=== PATIENT | female | born 1945 | race Caucasian/White ===

== ENCOUNTER 2018-06-18 00:31 | Emergency (ER) | payer MEDICAID ==
[~2018-06-18] VITALS: Ht 144.8 cm; Wt 65.8 kg
[2018-06-18 01:08] VITALS: BP_SYST 144
[2018-06-18] MEDS ORDERED: LOSA50TA3 PO (01:14)
[2018-06-18] MEDS ORDERED: HUM10VIA SQ (01:15)
[2018-06-18] MEDS ORDERED: NACL 0.9% 1,000 ML IV ONE (01:15)
[2018-06-18] MEDS ORDERED: LEVOTHYROXINE PO (01:16)
--- NOTE | 2018-06-18 01:35 | NUR ---
Patient to ER bed 6 to gown for evaluation. Side rails up. Report given from CONCHITA Browning.
--- NOTE | 2018-06-18 01:40 | NUR ---
ER at bedside examining patient.
--- NOTE | 2018-06-18 01:45 | NUR ---
Patient came in complaining of overall weakness. Pt's daughter says that she noticed her Mom had soem chills earlier this evening around 1600 ands he gave some ibuprofen but no relief. Pt's daughter said that around 10 pm her mother was starting to feel shaky and unsteady so they checked her blood sugar which was 225. No nausea, vomitting or diarrhea noted. Pt's daughter said that she was confused earlier tonight but is a lot better now since she got into the ED. No other complaints/injuries noted. Will continue to monitor.
--- NOTE | 2018-06-18 01:55 | NUR ---
Blood cultures obtained and sent to lab.
--- NOTE | 2018-06-18 02:30 | NUR ---
Patient resting comfortably in bed with both daughters at bedside. Fluids running, pt tolerating well. Will cont. to monitor.
[2018-06-18 02:31] LABS: ANION GAP 7 (5-15); CHLORIDE 96 mmol/L (98-107); CREATININE 1.06 mg/dL (0.55-1.30); GLUCOSE 134 mg/dL (70-99); POTASSIUM 3.4 mmol/L (3.5-5.1); SODIUM SERUM 133 mmol/L (136-145); UREA NITROGEN, BLOOD 20 mg/dL (8-21)
[2018-06-18 02:33] LABS: PROTHROMBIN TIME 10.4 SECS (9.5-12.5)
[2018-06-18 02:36] LABS: ALANINE AMINOTRANSFERASE 56 U/L (12-78); ALBUMIN 3.5 g/dL (3.4-4.8); ASPARTATE AMINOTRANSFERASE 53 U/L (10-37); BASOPHILS # (AUTO) 0.1 K/uL (0.0-0.2); BASOPHILS % (AUTO) 0.7 % (0.0-2.0); EOSINOPHILS % (AUTO) 0.2 % (0.0-4.0); HEMATOCRIT 43.1 % (36-48); HEMOGLOBIN 14.6 g/dL (12.0-16.0); LYMPHOCYTES # (AUTO) 0.5 K/uL (1.0-5.5); LYMPHOCYTES % (AUTO) 5.8 % (20.5-51.5); MEAN CORPUSCULAR HEMOGLOBIN 34 pg (27-31); MEAN CORPUSCULAR HGB CONC 34 % (32-36); MEAN CORPUSCULAR VOLUME 99 fL (79.0-98.0); MONOCYTES # (AUTO) 0.3 K/uL (0.0-1.0); NEUTROPHILS # (AUTO) 7.5 K/uL (1.8-7.7); NEUTROPHILS % (AUTO) 90.3 % (40.0-70.0); PLATELET COUNT (AUTO) 174 K/uL (130-430); RED BLOOD CELL COUNT(AUTO) 4.37 MIL/uL (4.2-6.2); RED CELL DISTRIBUTION WIDTH 12.2 % (9.0-15.0); TOTAL BILIRUBIN 0.7 mg/dL (0.0-1.0); WHITE BLOOD COUNT (AUTO) 8.4 K/uL (4.8-10.8)
[2018-06-18 02:37] LABS: BILIRUBIN,URINE NEGATIVE (NEGATIVE); BLOOD, URINE 1+ (NEGATIVE); CLARITY/URINE HAZY (CLEAR); COLOR,URINE YELLOW (YELLOW); GLUCOSE,URINE 1+ (NEGATIVE); KETONES,URINE NEGATIVE (NEGATIVE); LEUKOCYTE ESTERASE ,URINE TRACE (NEGATIVE); NITRITE, URINE NEGATIVE (NEGATIVE); PH,URINE 6.5 (5.0-8.0); PROTEIN URINE 2+ (NEGATIVE); UROBILINOGEN,URINE 0.2 (0.2-1.0)
[2018-06-18 02:48] LABS: MUCUS,URINE 1+ /LPF (None Seen)
[2018-06-18 02:49] LABS: BACTERIA,URINE MANY /HPF (None Seen)
[2018-06-18] MEDS ORDERED: LEVOFLOXACIN 500 MG/D5W 100 ML IV ONE (03:00)
[2018-06-18] MEDS ORDERED: NACL 0.9% 2,000 ML IV ONE (03:00)
--- NOTE | 2018-06-18 03:30 | NUR ---
Patient resting comfortably in bed. Fluids running. No signs of distress. Will cont. to monitor.
--- NOTE | 2018-06-18 04:13 | NUR ---
Pt got up to void in bedside commode with some assistance. Denies any dizziness. Tolerated well.
[2018-06-18] MEDS ORDERED: FUROSEMIDE 40 MG/4 ML VIAL IVP ONE (06:15)
--- NOTE | 2018-06-18 06:15 | NUR ---
Pt's blood pressure is 157/108. MD Dr. Daniels made aware. Pt is started on lasix IVP per MD order. Pt tolerating well. Will continue to monitor.
--- NOTE | 2018-06-18 06:35 | NUR ---
Pt states she "feels better" and "can breathe". Blood pressure is 148/52. MD Dr. Daniels made aware.
[2018-06-18 06:47] VITALS: BP_SYST 148
--- NOTE | 2018-06-18 06:47 | NUR ---
Patient given written and verbal discharge instructions and verbalizes understanding. ER MD Dr. Daniels discussed with patient the results and treatment provided. Patient in stable condition. ID arm band removed. IV catheter removed intact and dressing applied, no active bleeding. Rx of cipro given. Patient educated on pain management and to follow up with PMD within 2-3 days. Pain Scale 0/10. Opportunity for questions provided and answered. Medication side effect fact sheet provided.
== END 2018-06-18 06:47 | disposition home or self-care (01) ==
LOC: SED 00:31
DX: N39.0 Urinary tract infection, site not specified (principal); E11.9 Type 2 diabetes mellitus without complications; I10 Essential (primary) hypertension; Z79.899 Other long term (current) drug therapy
CPT/HCPCS: 36415; 71045; 80053; 81000; 82962; 83605; 84484; 85025; 85610; 85730; 87040; 87086; 87186; 93005; 96365; 96375; 99285; J1940; J1956; J7030

== ENCOUNTER 2018-10-30 16:56 | Emergency (ER) | payer MEDICAID ==
[~2018-10-30] VITALS: Ht 157.5 cm; Wt 63.0 kg
[~2018-10-30 16:56] MED LIST: HUM10VIA SQ; LEVOTHYROXINE PO; LOSA50TA3 PO
[2018-10-30] MEDS ORDERED: ONDANSETRON HCL 4 MG/2 ML VIAL IVP ONE (17:00)
[2018-10-30] MEDS ORDERED: NACL 0.9% 1,000 ML IV ONE (17:00)
[2018-10-30] MEDS ORDERED: ASPIRIN 81 MG TAB.CHEW PO ONE (17:00)
[2018-10-30 17:21] VITALS: BP_SYST 163
--- NOTE | 2018-10-30 17:31 | NUR ---
Patient to ER bed 2 to gown for evaluation. Side rails up. Report given to Tatianna ARANGO.
[2018-10-30 17:37] LABS: HEMOGLOBIN 14.3 g/dL (12.0-16.0); MEAN CORPUSCULAR HEMOGLOBIN 35 pg (27-31); MEAN CORPUSCULAR HGB CONC 35 % (32-36); MEAN CORPUSCULAR VOLUME 99 fL (79.0-98.0); PLATELET COUNT (AUTO) 184 K/uL (130-430); RED BLOOD CELL COUNT(AUTO) 4.14 MIL/uL (4.2-6.2); RED CELL DISTRIBUTION WIDTH 12.7 % (9.0-15.0); WHITE BLOOD COUNT (AUTO) 4.7 K/uL (4.8-10.8)
[2018-10-30 17:38] LABS: EOSINOPHILS # (AUTO) 0.1 K/uL (0.0-0.4); EOSINOPHILS % (AUTO) 1.3 % (0.0-4.0); LYMPHOCYTES # (AUTO) 1.5 K/uL (1.0-5.5); LYMPHOCYTES % (AUTO) 32.1 % (20.5-51.5); MONOCYTES # (AUTO) 0.5 K/uL (0.0-1.0); MONOCYTES % (AUTO) 9.6 % (1.7-9.3); NEUTROPHILS # (AUTO) 2.6 K/uL (1.8-7.7)
[2018-10-30 17:41] LABS: PROTHROMBIN TIME 10.2 SECS (9.5-12.5)
[2018-10-30 17:44] LABS: ANION GAP 5 (5-15); CALCIUM 8.9 mg/dL (8.4-11.0); CHLORIDE 96 mmol/L (98-107); CREATININE 1.09 mg/dL (0.55-1.30); GLUCOSE 367 mg/dL (70-99); POTASSIUM 4.2 mmol/L (3.5-5.1); SODIUM SERUM 132 mmol/L (136-145); UREA NITROGEN, BLOOD 18 mg/dL (8-21)
[2018-10-30 17:50] LABS: ALANINE AMINOTRANSFERASE 48 U/L (12-78); ALBUMIN 3.3 g/dL (3.4-4.8); AMYLASE 56 U/L (0-100); ASPARTATE AMINOTRANSFERASE 44 U/L (10-37); LIPASE 213 U/L (73-393); TOTAL BILIRUBIN 0.4 mg/dL (0.0-1.0)
--- NOTE | 2018-10-30 17:55 | NUR ---
ER Dr. Cadet at bedside examining patient.
--- NOTE | 2018-10-30 17:56 | NUR ---
Patient presented to the ER c/o fall yesterday at 0300. Patient states she fell at home hitting the back of her head with no KO. Pt A&Ox4, georgian speaking only, afebrile, respirations equal bilat.PAtient states pain to her back of head and sides of neck /
--- NOTE | 2018-10-30 18:15 | NUR ---
Pt to CT with Radiology staff
--- NOTE | 2018-10-30 18:25 | NUR ---
Pt back to ER bed [address]
--- NOTE | 2018-10-30 19:18 | NUR ---
Patient given written and verbal discharge instructions and verbalizes understanding. ER MD discussed with patient the results and treatment provided. Patient in stable condition. ID arm band removed. IV catheter removed intact and dressing applied, no active bleeding. Rx of Tylenol given. Patient educated on pain management and to follow up with PMD. Pain Scale2/10 tolerable for pt . Opportunity for questions provided and answered. Medication side effect fact sheet provided. Discharge in [place].
[2018-10-30 19:20] VITALS: BP_SYST 163
== END 2018-10-30 19:20 | disposition home or self-care (01) ==
LOC: SED 16:56
DX: S16.1XXA Strain of muscle, fascia and tendon at neck level, initial encounter (principal); S09.90XA Unspecified injury of head, initial encounter; I10 Essential (primary) hypertension; E11.9 Type 2 diabetes mellitus without complications; Z79.899 Other long term (current) drug therapy; W01.198A Fall on same level from slipping, tripping and stumbling with subsequent striking against other object, initial encounter; Y93.89 Activity, other specified; Y92.89 Other specified places as the place of occurrence of the external cause; Y99.8 Other external cause status
CPT/HCPCS: 36415; 70450; 71045; 72125; 80053; 82150; 82550; 83690; 83880; 84484; 85025; 85610; 85730; 93005; 96374; 99284; J2405; J7030

== ENCOUNTER 2019-07-26 06:29 | Emergency (ER) | payer MEDICAID ==
[~2019-07-26] VITALS: Ht 157.5 cm; Wt 63.0 kg
--- NOTE | 2019-07-26 06:44 | NUR ---
Patient to ER bed 06 to gown for evaluation. Side rails up.
[2019-07-26 06:50] VITALS: BP_SYST 149
--- NOTE | 2019-07-26 07:06 | NUR ---
ER at bedside examining patient.
[2019-07-26] MEDS ORDERED: NACL 0.9% 1,000 ML IV ONE (07:07)
--- NOTE | 2019-07-26 07:07 | NUR ---
report received from Angela ARANGO. PT arrives from home w/ c/o 03/19 left sided abd pain. Pt denies N/V. Pt report not having complete BM's.
--- NOTE | 2019-07-26 07:30 | NUR ---
# 20 gauge angiocath placed to LAC. Use of asceptic technique. Opsite placed over site. Blood return noted. Blood for lab drawn from site. Flushed with 10 cc of normal saline. No evidence of infiltration noted. Patient tolerated well.
[2019-07-26 07:32] LABS: BILIRUBIN,URINE NEGATIVE (NEGATIVE); BLOOD, URINE 2+ (NEGATIVE); CLARITY/URINE CLOUDY (CLEAR); COLOR,URINE YELLOW (YELLOW); GLUCOSE,URINE TRACE (NEGATIVE); KETONES,URINE TRACE (NEGATIVE); LEUKOCYTE ESTERASE ,URINE 3+ (NEGATIVE); NITRITE, URINE NEGATIVE (NEGATIVE); PROTEIN URINE 2+ (NEGATIVE); UROBILINOGEN,URINE 0.2 (0.2-1.0)
[2019-07-26 07:35] LABS: BACTERIA,URINE MODERATE /HPF (None Seen); WBC,URINE >100 /HPF (0-3)
--- NOTE | 2019-07-26 07:50 | NUR ---
Patient transported to radiology via gurney, accompanied by trade manager.
--- NOTE | 2019-07-26 08:17 | NUR ---
pt returned from Ct scan.
[2019-07-26 08:41] LABS: HEMATOCRIT 39.3 % (36-48); HEMOGLOBIN 13.6 g/dL (12.0-16.0); MEAN CORPUSCULAR HEMOGLOBIN 35 pg (27-31); MEAN CORPUSCULAR HGB CONC 35 % (32-36); MEAN CORPUSCULAR VOLUME 101 fL (79.0-98.0); PLATELET COUNT (AUTO) 130 K/uL (130-430); RED BLOOD CELL COUNT(AUTO) 3.89 MIL/uL (4.2-6.2); WHITE BLOOD COUNT (AUTO) 12.1 K/uL (4.8-10.8)
[2019-07-26 08:52] LABS: ANION GAP 12 (5-15); CALCIUM 7.9 mg/dL (8.4-11.0); CHLORIDE 98 mmol/L (98-107); CREATININE 1.36 mg/dL (0.55-1.30); GLUCOSE 219 mg/dL (70-99); POTASSIUM 3.2 mmol/L (3.5-5.1); SODIUM SERUM 137 mmol/L (136-145); UREA NITROGEN, BLOOD 15 mg/dL (8-21)
[2019-07-26 08:57] LABS: ALANINE AMINOTRANSFERASE 39 U/L (12-78); ALBUMIN 2.8 g/dL (3.4-4.8); ASPARTATE AMINOTRANSFERASE 36 U/L (10-37); LIPASE 50 U/L (73-393); TOTAL BILIRUBIN 1.4 mg/dL (0.0-1.0)
[2019-07-26] MEDS ORDERED: cefTRIAXone 1 GM IVPB PREMIX 50 ML IV ONE (09:00)
[2019-07-26 09:01] LABS: ATYPICAL LYMPHOCYTES % 0 % (0-0); BAND % (MANUAL) 15 % (0-6); BASOPHILS % (MANUAL) 0 % (0-2); EOSINOPHILS % (MANUAL) 0 % (0-7); LYMPHOCYTES % (MANUAL) 9 % (20-46); MONOCYTES % (MANUAL) 11 % (0-11)
--- NOTE | 2019-07-26 09:25 | NUR ---
Rocephin currently infusing per MD order.
[2019-07-26 10:02] VITALS: BP_SYST 108
--- NOTE | 2019-07-26 10:04 | NUR ---
Patient given written and verbal discharge instructions and verbalizes understanding. ER MD discussed with patient the results and treatment provided. Patient in stable condition. ID arm band removed. IV catheter removed intact and dressing applied, no active bleeding. Rx of Macrobid and Mag citratele 0/10.Opportunity for questions provided and answered. Medication side effect fact sheet provided.
== END 2019-07-26 10:02 | disposition home or self-care (01) ==
LOC: SED 06:29
DX: R10.32 Left lower quadrant pain (principal); E11.9 Type 2 diabetes mellitus without complications; I10 Essential (primary) hypertension; E03.9 Hypothyroidism, unspecified; Z90.710 Acquired absence of both cervix and uterus; Z79.4 Long term (current) use of insulin; Z79.899 Other long term (current) drug therapy
CPT/HCPCS: 36415; 74176; 80053; 81000; 82962; 83690; 85007; 85027; 87040; 87086; 87186; 96365; 99284; J0696; J7030